=== PATIENT | male | born 1960 | race Caucasian/White ===

== ENCOUNTER 2017-05-19 07:52 | Observation (INO) | payer OTHER ==
[2017-05-19] MEDS ORDERED: FAMOTIDINE 20 MG TAB PO ONE (07:57)
[2017-05-19] MEDS ORDERED: ASPIRIN EC 325 MG TAB PO ONE (07:57)
[2017-05-19] MEDS ORDERED: diphenhydrAMINE 25 MG CAP PO ONE (07:57)
[2017-05-19] MEDS ORDERED: NS 1,000 ML IV ONE (07:57)
[2017-05-19] MEDS ORDERED: DIAZEPAM 5 MG TAB PO ONE (07:57)
--- NOTE | 2017-05-19 08:17 | CPEKG ---
Heart Rate: 71 RR Interval: 845 P-R Interval: 184 QRSD Interval: 88 QT Interval: 384 QTC Interval: 418 P [place]: 75 QRS [place]: -70 T Wave [place]: 83 EKG Severity - ABNORMAL ECG - EKG Impression: SINUS RHYTHM EKG Impression: LEFT ANTERIOR FASCICULAR BLOCK EKG Impression: CONSIDER ANTERIOR INFARCT Electronically Signed By: Wyatt Fuentes 19-May-2017 17:38:01
[2017-05-19 08:37] LABS: PLATELET COUNT 232 10^3/uL (150-400)
[2017-05-19 08:53] LABS: INR 0.94 (0.83-1.16); PROTIME(PATIENT) 12.5 SEC (12.0-15.0)
[2017-05-19] MEDS ORDERED: LIDOCAINE 1% 300 MG/30 ML SDV ONE (09:21)
[2017-05-19] MEDS ORDERED: MIDAZOLAM 2 MG/2 ML VIAL ONE ×5 (09:21→12:12)
[2017-05-19] MEDS ORDERED: fentaNYL 100 MCG/2 ML INJ ONE ×3 (09:21→12:17)
[2017-05-19] MEDS ORDERED: IOPAMIDOL (ISOVUE-370) 150 ML BTL IV ONE ×2 (09:22→11:49)
--- NOTE | 2017-05-19 10:09 | PDPROPOC ---
Sedation Plan of Care Sedation Plan of Care: vital signs stable, mental status noted, patient educated of risks, benefits, alternatives, patient can tolerate sedation ASA Classification: ASA 2 Planned drugs: fentanyl, midazolam Mallampati Score: Class 2 Mallampati Reference Image: Patient passed 3-3-2 rule?: Yes
--- NOTE | 2017-05-19 10:13 | PDGENHP ---
History & Physical Chief Complaint: CLIFTON, Fatigue. Poor exercise tolerance History of Present Illness: 56 year old with hx of CAD sp CABG x 4 in 2011 with new onset clifton and fatigue. He could not complete Manolo protocol secondary to CLIFTON. Nuc images demonstrate inferior ischemia. Pertinent Past, Social, Family History: PMH.CAD. CABG, HTN, DM. Hyperlipidemia Relevant Physical Exam: Awake alert appropriate. S1/S2 no m/r/g Cardiorespiratory Assessment: Normal cardiac exam.
[2017-05-19] MEDS ORDERED: HEPARIN 10,000 UNIT/10 ML MDV ONE ×2 (11:58→12:28)
[2017-05-19] MEDS ORDERED: NITROGLYCERIN/D5W 50 MG/250 ML BOTTLE IV ONE (12:23)
[2017-05-19] MEDS ORDERED: CLOPIDOGREL BISULFATE 75 MG TAB ONE (12:37)
[2017-05-19] MEDS ORDERED: LABETALOL HCL 5 MG/ML 20 ML MDV ONE (12:50)
[2017-05-19] MEDS ORDERED: TEMAZEPAM 15 MG CAP PO PRN (13:03)
[2017-05-19] MEDS ORDERED: ONDANSETRON 4 MG/2 ML VIAL IVP PRN (13:03)
[2017-05-19] MEDS ORDERED: NITROGLYCERIN 0.4 MG BTL SL PRN (13:03)
[2017-05-19] MEDS ORDERED: ATROPINE SULFATE 1 MG/10 ML SYR IVP PRN (13:03)
[2017-05-19] MEDS ORDERED: CLOPIDOGREL BISULFATE 75 MG TAB PO ONE ×2 (13:03→15:04)
--- NOTE | 2017-05-19 13:10 | PDCTREPORT ---
Cardiothoracic Procedure Rpt Cardiothoracic Procedure Report: Procedure: PCI and stenting of the dominant right coronary artery. Indications: Asked by Dr. Toro Granado to perform PCI and stenting of the dominant right coronary artery in this 56-year-old male had exertional shortness of breath is anginal equivalent status post failed nuclear treadmill with inferior ischemia. He is status post coronary artery bypass grafting. After reviewing diagnostic angiograms it was elected to proceed with PCI of the dominant right coronary. Patient was anticoagulated with heparin. Therapeutic ACT was confirmed. 6 Bulgarian sheath was exchanged for 7 Bulgarian sheath in the right femoral artery. Femoral arteriogram was performed. Using a 7 Bulgarian hockey-stick right guiding catheter the right coronary was selectively intubated. Using a 0.014 luge wire the RCA stenosis was crossed. Lesion was pre-dilated with a 2 mm balloon. For details of the balloon inflations in the entire procedure please see attached computer report. Was elected to proceed with stenting. A 3.0 x 38 mm synergy stent was placed on the wire. It would not cross. A 0.014 mailman wire was used as a louise which allowed the stent to cross. Mailman wire was withdrawn stent was deployed using a single inflation. Repeat angiograms revealed proximal dissection. Patient became hypertensive and agitated. Nitroglycerin drip was started. Attempts at placing a 2nd 3.0 x 32 mm synergy stent were made but failed. The Mailman wire was then again used as a louise allowing the stent to be placed properly. Was deployed using a single inflation after withdrawing the Mailman wire. Repeat angiograms revealed excellent clinical flow. Elected proceed with intravascular ultrasound. This revealed a proximal stent edge to be under deployed. A 4.0 x 12 mm synergy stent was placed on the wire in position proximally. It was deployed using a single inflation. Intravascular ultrasound showed excellent resolution of the dissection proximal as well as good stent apposition. The wire was withdrawn. Arteriotomy was closed using a Perclose system. 20 minutes of pressure was held post closure. Patient was administered 20 mg of IV labetalol for blood pressure control. A Femstop was placed prophylactically. Patient is taken to recovery for continued care. For details of the procedure please see attached computer report. Contrast 400 cc. Radiation 26.2 minutes of fluoroscopy, 5072 mGy. Sedation 12 mg Versed, 300 mcg of fentanyl. Conclusion: Successful PCI and stenting of the dominant right coronary complicated by limited dissection treated with stenting. Continue aggressive secondary prevention. Results discussed with Dr. Granado. Patient Problems: Problems Problem Status Onset Angina of effort Acute Abnormal exercise myocardial perfusion study Acute Status post coronary artery bypass grafting Acute Coronary artery disease Acute
--- NOTE | 2017-05-19 13:24 | CPIP ---
[f rep st] INVASIVE CARDIAC PROCEDURE DATE OF PROCEDURE: 05/19/2017 INDICATIONS: Known history of coronary artery disease, status post 4-vessel CABG in 2010, with new c omplaints of exertional intolerance, dyspnea on exertion and fatigue, coupled with abnormal nuclear s tress test in the setting that he was unable to complete exercise portion of treadmill secondary to p rofound dyspnea, shortness of breath, and exercise intolerance. Nuclear imaging demonstrated there w as evidence in the apical inferior, mid inferior, and basal inferolateral wall. These findings were new compared to previous study in 2015. NAME OF PROCEDURE: 1. Left heart catheterization. 2. Left coronary angiography. 3. Right coronary angiography. 4. Vein graft angiography and angiography of the left internal mammary artery to the left anterior d escending. 5. Left ventriculogram with assessment of hemodynamics. DESCRIPTION OF PROCEDURE: After informed consent was obtained, the patient was brought to the [facility] catheterization lab. Prior to the heart catheterization, there was discussion about potential dalia rgy to metals. He has no diagnosed allergy to a specific type of metal. He states he has never been tested but does note that he has been intolerant to wearing jewelry and belt noreen develop rash. We discussed this in detail, including options of CT angiography versus diagnostic left heart cathete rization or consideration of transfer to an institute performing PCI with bioabsorbable stents. Cheli torres, the decision was made to pursue diagnostic left heart catheterization in the setting of no co nclusive data on management other than to treat the underlying coronary artery disease. The patient was prepped and draped in a sterile fashion. With assistance of my colleague, Dr. José Miguel raymond, 6-Greenlandic femoral sheath was placed in the right common femoral artery without complications. JL 4 catheter was used to take images of the [place] left coronary anatomy in multiple projections. JL4 catheter was exchanged over a guidewire for a JR4 catheter. JR4 catheter was exchanged over a guidew [place] for a Marcellus right catheter, which was used to successfully cannulate the [place] right coronary artery. Marcellus right catheter was exchanged for a JR4 catheter, which was used to cannulate the s aphenous vein graft to the diagonal branch. Attempts to cannulate the vein graft to the ramus and ra dial branch to the circumflex demonstrated occluded vein graft to the diagonal and occluded radial gr aft to the circumflex. An internal mammary artery catheter was used to successfully cannulate the left internal mammary gabrielle ry. Images were taken in multiple projections. There was no evidence of coronary disease with the L IBIS. The anastomosis to the LAD was widely patent. Internal mammary artery catheter was removed over a guidewire. Angled pigtail catheter was used to c ross the aortic valve. Left ventriculogram was performed. LVEDP was assessed and gradient across th e aortic valve on pullback was also assessed. FINDINGS: 1. Left main normal caliber in size, demonstrates no evidence of coronary disease in the left main. The left main trifurcates into left anterior descending, right ramus branch, and circumflex artery. 2. The left anterior descending artery demonstrates 50% to 60% stenosis in the proximal LAD with mil d luminal irregularities to the remainder of the vessel. There is evidence of flow at the junction o f the AZUL to the LAD. 3. Left circumflex is a nondominant vessel. There is 30% to 40% proximal to mid narrowing within th e circumflex, with no evidence of flow-limiting coronary disease. 4. The right coronary artery is a dominant large caliber vessel that bifurcates into PDA and PLV bra nches. There is proximal to mid stenosis of 70% to 80%. Vein grafts: 1. Saphenous vein graft to the diagonal branch is widely patent. 2. Saphenous vein graft to the ramus branch is occluded at its origin. 3. Radial artery graft to the ramus branch is occluded. 4. Left internal mammary artery to LAD is widely patent with good anastomosis. HEMODYNAMICS: LVEDP 33 mmHg, LVEF 60% to 65%. Aortic valve gradient none. CONCLUSION: 1. Hemodynamically significant stenosis of the proximal dominant right coronary artery. In the sett ing of a dominant right coronary artery without vein grafts and evidence of apical mid and basal infe rior wall ischemia, we will plan for percutaneous coronary intervention to the right coronary artery. 2. Occluded radial graft to the circumflex and occluded saphenous vein graft to the ramus. 3. Patent saphenous vein graft to the diagonal. 4. Patent AZUL to the LAD. 5. Nonobstructive coronary disease within the LAD and circumflex. 6. Elevated LVEDP of 33 mmHg. 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 We will work to roseline zhang address blood pressure issues post procedure. PLAN: Plan for percutaneous coronary intervention to the proximal mid right coronary artery. I have reviewed these images with my interventional colleague, Dr. Casas. I have also discussed the erum n with the patient. /[id number]/MODL
--- NOTE | 2017-05-19 13:24 | CPIP ---
[f rep st] INVASIVE CARDIAC PROCEDURE DATE OF PROCEDURE: 05/19/2017 INDICATIONS: Known history of coronary artery disease, status post 4-vessel CABG in 2010, with new c omplaints of exertional intolerance, dyspnea on exertion and fatigue, coupled with abnormal nuclear s tress test in the setting that he was unable to complete exercise portion of treadmill secondary to p rofound dyspnea, shortness of breath, and exercise intolerance. Nuclear imaging demonstrated there w as evidence in the apical inferior, mid inferior, and basal inferolateral wall. These findings were new compared to previous study in 2015. NAME OF PROCEDURE: 1. Left heart catheterization. 2. Left coronary angiography. 3. Right coronary angiography. 4. Vein graft angiography and angiography of the left internal mammary artery to the left anterior d escending. 5. Left ventriculogram with assessment of hemodynamics. DESCRIPTION OF PROCEDURE: After informed consent was obtained, the patient was brought to the [facility] catheterization lab. Prior to the heart catheterization, there was discussion about potential dalia rgy to metals. He has no diagnosed allergy to a specific type of metal. He states he has never been tested but does note that he has been intolerant to wearing jewelry and belt noreen develop rash. We discussed this in detail, including options of CT angiography versus diagnostic left heart cathete rization or consideration of transfer to an institute performing PCI with bioabsorbable stents. Cheli torres, the decision was made to pursue diagnostic left heart catheterization in the setting of no co nclusive data on management other than to treat the underlying coronary artery disease. The patient was prepped and draped in a sterile fashion. With assistance of my colleague, Dr. José Miguel raymond, 6-Amharic femoral sheath was placed in the right common femoral artery without complications. JL 4 catheter was used to take images of the [place] left coronary anatomy in multiple projections. JL4 catheter was exchanged over a guidewire for a JR4 catheter. JR4 catheter was exchanged over a guidew [place] for a Marcellus right catheter, which was used to successfully cannulate the [place] right coronary artery. Marcellus right catheter was exchanged for a JR4 catheter, which was used to cannulate the s aphenous vein graft to the diagonal branch. Attempts to cannulate the vein graft to the ramus and ra dial branch to the circumflex demonstrated occluded vein graft to the diagonal and occluded radial gr aft to the circumflex. An internal mammary artery catheter was used to successfully cannulate the left internal mammary gabrielle ry. Images were taken in multiple projections. There was no evidence of coronary disease with the L IBIS. The anastomosis to the LAD was widely patent. Internal mammary artery catheter was removed over a guidewire. Angled pigtail catheter was used to c ross the aortic valve. Left ventriculogram was performed. LVEDP was assessed and gradient across th e aortic valve on pullback was also assessed. FINDINGS: 1. Left main normal caliber in size, demonstrates no evidence of coronary disease in the left main. The left main trifurcates into left anterior descending, right ramus branch, and circumflex artery. 2. The left anterior descending artery demonstrates 50% to 60% stenosis in the proximal LAD with mil d luminal irregularities to the remainder of the vessel. There is evidence of flow at the junction o f the AZUL to the LAD. 3. Left circumflex is a nondominant vessel. There is 30% to 40% proximal to mid narrowing within th e circumflex, with no evidence of flow-limiting coronary disease. 4. The right coronary artery is a dominant large caliber vessel that bifurcates into PDA and PLV bra nches. There is proximal to mid stenosis of 70% to 80%. Vein grafts: 1. Saphenous vein graft to the diagonal branch is widely patent. 2. Saphenous vein graft to the ramus branch is occluded at its origin. 3. Radial artery graft to the ramus branch is occluded. 4. Left internal mammary artery to LAD is widely patent with good anastomosis. HEMODYNAMICS: LVEDP 33 mmHg, LVEF 60% to 65%. Aortic valve gradient none. CONCLUSION: 1. Hemodynamically significant stenosis of the proximal dominant right coronary artery. In the sett ing of a dominant right coronary artery without vein grafts and evidence of apical mid and basal infe rior wall ischemia, we will plan for percutaneous coronary intervention to the right coronary artery. 2. Occluded radial graft to the circumflex and occluded saphenous vein graft to the ramus. 3. Patent saphenous vein graft to the diagonal. 4. Patent AZUL to the LAD. 5. Nonobstructive coronary disease within the LAD and circumflex. 6. Elevated LVEDP of 33 mmHg. 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 We will work to roseline zhang address blood pressure issues post procedure. PLAN: Plan for percutaneous coronary intervention to the proximal mid right coronary artery. I have reviewed these images with my interventional colleague, Dr. Casas. I have also discussed the erum n with the patient. /[id number]/MODL
--- NOTE | 2017-05-19 13:24 | CPIP ---
[f rep st] INVASIVE CARDIAC PROCEDURE DATE OF PROCEDURE: 05/19/2017 INDICATIONS: Known history of coronary artery disease, status post 4-vessel CABG in 2010, with new c omplaints of exertional intolerance, dyspnea on exertion and fatigue, coupled with abnormal nuclear s tress test in the setting that he was unable to complete exercise portion of treadmill secondary to p rofound dyspnea, shortness of breath, and exercise intolerance. Nuclear imaging demonstrated there w as evidence in the apical inferior, mid inferior, and basal inferolateral wall. These findings were new compared to previous study in 2015. NAME OF PROCEDURE: 1. Left heart catheterization. 2. Left coronary angiography. 3. Right coronary angiography. 4. Vein graft angiography and angiography of the left internal mammary artery to the left anterior d escending. 5. Left ventriculogram with assessment of hemodynamics. DESCRIPTION OF PROCEDURE: After informed consent was obtained, the patient was brought to the [facility] catheterization lab. Prior to the heart catheterization, there was discussion about potential dalia rgy to metals. He has no diagnosed allergy to a specific type of metal. He states he has never been tested but does note that he has been intolerant to wearing jewelry and belt noreen develop rash. We discussed this in detail, including options of CT angiography versus diagnostic left heart cathete rization or consideration of transfer to an institute performing PCI with bioabsorbable stents. Cheli torres, the decision was made to pursue diagnostic left heart catheterization in the setting of no co nclusive data on management other than to treat the underlying coronary artery disease. The patient was prepped and draped in a sterile fashion. With assistance of my colleague, Dr. José Miguel raymond, 6-Nepali femoral sheath was placed in the right common femoral artery without complications. JL 4 catheter was used to take images of the [place] left coronary anatomy in multiple projections. JL4 catheter was exchanged over a guidewire for a JR4 catheter. JR4 catheter was exchanged over a guidew [place] for a Marcellus right catheter, which was used to successfully cannulate the [place] right coronary artery. Marcellus right catheter was exchanged for a JR4 catheter, which was used to cannulate the s aphenous vein graft to the diagonal branch. Attempts to cannulate the vein graft to the ramus and ra dial branch to the circumflex demonstrated occluded vein graft to the diagonal and occluded radial gr aft to the circumflex. An internal mammary artery catheter was used to successfully cannulate the left internal mammary gabrielle ry. Images were taken in multiple projections. There was no evidence of coronary disease with the L IBIS. The anastomosis to the LAD was widely patent. Internal mammary artery catheter was removed over a guidewire. Angled pigtail catheter was used to c ross the aortic valve. Left ventriculogram was performed. LVEDP was assessed and gradient across th e aortic valve on pullback was also assessed. FINDINGS: 1. Left main normal caliber in size, demonstrates no evidence of coronary disease in the left main. The left main trifurcates into left anterior descending, right ramus branch, and circumflex artery. 2. The left anterior descending artery demonstrates 50% to 60% stenosis in the proximal LAD with mil d luminal irregularities to the remainder of the vessel. There is evidence of flow at the junction o f the AZUL to the LAD. 3. Left circumflex is a nondominant vessel. There is 30% to 40% proximal to mid narrowing within th e circumflex, with no evidence of flow-limiting coronary disease. 4. The right coronary artery is a dominant large caliber vessel that bifurcates into PDA and PLV bra nches. There is proximal to mid stenosis of 70% to 80%. Vein grafts: 1. Saphenous vein graft to the diagonal branch is widely patent. 2. Saphenous vein graft to the ramus branch is occluded at its origin. 3. Radial artery graft to the ramus branch is occluded. 4. Left internal mammary artery to LAD is widely patent with good anastomosis. HEMODYNAMICS: LVEDP 33 mmHg, LVEF 60% to 65%. Aortic valve gradient none. CONCLUSION: 1. Hemodynamically significant stenosis of the proximal dominant right coronary artery. In the sett ing of a dominant right coronary artery without vein grafts and evidence of apical mid and basal infe rior wall ischemia, we will plan for percutaneous coronary intervention to the right coronary artery. 2. Occluded radial graft to the circumflex and occluded saphenous vein graft to the ramus. 3. Patent saphenous vein graft to the diagonal. 4. Patent AZUL to the LAD. 5. Nonobstructive coronary disease within the LAD and circumflex. 6. Elevated LVEDP of 33 mmHg. 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 We will work to roseline zhang address blood pressure issues post procedure. PLAN: Plan for percutaneous coronary intervention to the proximal mid right coronary artery. I have reviewed these images with my interventional colleague, Dr. Casas. I have also discussed the erum n with the patient. /[id number]/MODL
[2017-05-19] MEDS ORDERED: ACETAMINOPHEN 325 MG TAB PO PRN (13:29)
[2017-05-19] MEDS ORDERED: NS 1,000 ML IV SCH ×2 (13:30→15:00)
[2017-05-19 14:04] LABS: PLATELET COUNT 220 10^3/uL (150-400)
--- NOTE | 2017-05-19 14:10 | CPEKG ---
Heart Rate: 67 RR Interval: 896 P-R Interval: 172 QRSD Interval: 88 QT Interval: 416 QTC Interval: 439 P [place]: 57 QRS [place]: -49 T Wave [place]: 104 EKG Severity - ABNORMAL ECG - EKG Impression: SINUS RHYTHM EKG Impression: ATRIAL PREMATURE COMPLEX EKG Impression: LEFT ANTERIOR FASCICULAR BLOCK EKG Impression: CONSIDER ANTEROSEPTAL INFARCT EKG Impression: NONSPECIFIC T ABNORMALITIES, LATERAL LEADS Electronically Signed By: Wyatt Fuentes 19-May-2017 17:38:15
[2017-05-19] MEDS ORDERED: OXYCODONE/APAP 5/325 TAB PO ONE (14:30)
[2017-05-19] MEDS ORDERED: NITROGLYCERIN/DEXTROSE 250 ML IV SCH (15:00)
[2017-05-19] MEDS ORDERED: LORazepam 2 MG/ML INJ ONE (15:07)
[2017-05-19] MEDS: LORazepam 2 MG/ML INJ IVP PRN ×2 (15:08→17:28)
[2017-05-19] MEDS ORDERED: INSULIN GLARGINE 100 UNITS/ML SYRINGE SC SCH (16:00)
[2017-05-19] MEDS ORDERED: INSULIN LISPRO 50 UNIT SQ SCH (21:00)
[2017-05-19] MEDS ORDERED: INSULIN LISPRO 100 UNIT/ML SC SCH (21:00)
[2017-05-19] MEDS: METOPROLOL TARTRATE 50 MG TAB PO SCH (21:14)
[2017-05-19] MEDS: INSULIN GLARGINE 100 UNITS/ML SYRINGE SC SCH (22:18)
[2017-05-20 05:34] LABS: PLATELET COUNT 211 10^3/uL (150-400)
--- NOTE | 2017-05-20 06:32 | PDCARPN ---
Cardiology Progress Note Chief Complaint: sob, salas, exertional intolerance Assessment/Plan: Assessment: 1. CAD sp PCI x 4 to RCA yesterday 2. Hx of 4 V CABG in 2011. patent AZUL to LAD and SVG to diag. Occluded Radial to LCX and SVG to Ramus 3. Essential HTN 4. Hyperlipidemia 5. DM 6. Obesity 7. ALLIE (scheduled to see [facility] next week for initial consultation) Plan: -continue plavix 75 mg daily x one year -aspirin 81 mg daily -increase Linsinopril/HCTZ 10/12.5 mg to 2 tabs once daily (has been on one tab daily) -add Lasix 20 mg daily secondary to elevated LVEDP -Cardiac Rehab -Follow up next week in our office -post cath groin site care reviewed in detail -No other changes to medications 05/20/17 06:28 Subjective: Mr. Juan presented yesterday for elective LHC in the setting of abnormal nuclear stress test with inferior and inferior lateral ischemia coupled with symptoms of sob, salas and exertional intolerance. He was found to have significant cad in the RCA and underwent successful PCI to RCA. There was RCA dissection with stent deployment, required addtional PCI, with JOSE ARMANDO III restored. He had some mild post op bleeding from groin site. No events over night. Groin site with ecchymosis without hematoma. Pt is without complaint this morning. Reviewed/Discussed With: multidisciplinary team Time Spent With Patient: 20 minutes Objective: Vital Signs (8 Hrs) Temp Pulse Resp BP Pulse Ox 05/20/17 04:00 36.7 C 56 L 18 137/80 H 97 05/19/17 23:30 36.8 C 74 18 101/56 L 91 L Intake/Output (24 Hrs) 05/19/17 05/20/17 05/21/17 05:59 05:59 05:59 Intake Total 3062 Output Total 1075 Balance 1986 Intake: Oral (ml) 400 IV Intake (ml) 2000 IV Infused (ml) 662 Nitroglycerin/Dextrose 12 250 ml @ Titrate IV CONT LOLA Rx#:[id number] Ns 1,000 ml @ 50 mls/hr 650 IV CONT LOLA Rx#: [id number] Output: Urine (ml) 1075 Urinal 1075 Other: Weight 160.6 kg Number of Voids Urinal 1 Number of Stools Urinal 1 Result Diagrams: 05/20/17 04:49 05/20/17 04:49 - Physical Exam Eyes: PERRL Ears, Nose, Mouth, Throat: moist mucous membranes Cardiovascular: regular rate and rhythm, no murmurs, no rubs, no gallops Peripheral Pulses: 2+: dorsalis-pedis (R), dorsalis-pedis (L) Respiratory: clear to auscultate bilat Musculoskeletal: no muscular tenderness Neurologic: AAOx3, CN II-XII grossly intact Psychiatric: cooperative, interactive ICD10 Worksheet Patient Problems: Problems Problem Status Onset Angina of effort Acute Abnormal exercise myocardial perfusion study Acute Status post coronary artery bypass grafting Acute Coronary artery disease Acute
--- NOTE | 2017-05-20 06:32 | PDCARPN ---
Cardiology Progress Note Chief Complaint: sob, salas, exertional intolerance Assessment/Plan: Assessment: 1. CAD sp PCI x 4 to RCA yesterday 2. Hx of 4 V CABG in 2011. patent AZUL to LAD and SVG to diag. Occluded Radial to LCX and SVG to Ramus 3. Essential HTN 4. Hyperlipidemia 5. DM 6. Obesity 7. ALLIE (scheduled to see [facility] next week for initial consultation) Plan: -continue plavix 75 mg daily x one year -aspirin 81 mg daily -increase Linsinopril/HCTZ 10/12.5 mg to 2 tabs once daily (has been on one tab daily) -add Lasix 20 mg daily secondary to elevated LVEDP -Cardiac Rehab -Follow up next week in our office -post cath groin site care reviewed in detail -No other changes to medications 05/20/17 06:28 Subjective: Mr. Juan presented yesterday for elective LHC in the setting of abnormal nuclear stress test with inferior and inferior lateral ischemia coupled with symptoms of sob, salas and exertional intolerance. He was found to have significant cad in the RCA and underwent successful PCI to RCA. There was RCA dissection with stent deployment, required addtional PCI, with JOSE ARMANDO III restored. He had some mild post op bleeding from groin site. No events over night. Groin site with ecchymosis without hematoma. Pt is without complaint this morning. Reviewed/Discussed With: multidisciplinary team Time Spent With Patient: 20 minutes Objective: Vital Signs (8 Hrs) Temp Pulse Resp BP Pulse Ox 05/20/17 04:00 36.7 C 56 L 18 137/80 H 97 05/19/17 23:30 36.8 C 74 18 101/56 L 91 L Intake/Output (24 Hrs) 05/19/17 05/20/17 05/21/17 05:59 05:59 05:59 Intake Total 3062 Output Total 1075 Balance 1986 Intake: Oral (ml) 400 IV Intake (ml) 2000 IV Infused (ml) 662 Nitroglycerin/Dextrose 12 250 ml @ Titrate IV CONT LOLA Rx#:[id number] Ns 1,000 ml @ 50 mls/hr 650 IV CONT LOLA Rx#: [id number] Output: Urine (ml) 1075 Urinal 1075 Other: Weight 160.6 kg Number of Voids Urinal 1 Number of Stools Urinal 1 Result Diagrams: 05/20/17 04:49 05/20/17 04:49 - Physical Exam Eyes: PERRL Ears, Nose, Mouth, Throat: moist mucous membranes Cardiovascular: regular rate and rhythm, no murmurs, no rubs, no gallops Peripheral Pulses: 2+: dorsalis-pedis (R), dorsalis-pedis (L) Respiratory: clear to auscultate bilat Musculoskeletal: no muscular tenderness Neurologic: AAOx3, CN II-XII grossly intact Psychiatric: cooperative, interactive ICD10 Worksheet Patient Problems: Problems Problem Status Onset Angina of effort Acute Abnormal exercise myocardial perfusion study Acute Status post coronary artery bypass grafting Acute Coronary artery disease Acute
--- NOTE | 2017-05-20 06:32 | PDCARPN ---
Cardiology Progress Note Chief Complaint: sob, salas, exertional intolerance Assessment/Plan: Assessment: 1. CAD sp PCI x 4 to RCA yesterday 2. Hx of 4 V CABG in 2011. patent AZUL to LAD and SVG to diag. Occluded Radial to LCX and SVG to Ramus 3. Essential HTN 4. Hyperlipidemia 5. DM 6. Obesity 7. ALLIE (scheduled to see [facility] next week for initial consultation) Plan: -continue plavix 75 mg daily x one year -aspirin 81 mg daily -increase Linsinopril/HCTZ 10/12.5 mg to 2 tabs once daily (has been on one tab daily) -add Lasix 20 mg daily secondary to elevated LVEDP -Cardiac Rehab -Follow up next week in our office -post cath groin site care reviewed in detail -No other changes to medications 05/20/17 06:28 Subjective: Mr. Juan presented yesterday for elective LHC in the setting of abnormal nuclear stress test with inferior and inferior lateral ischemia coupled with symptoms of sob, salas and exertional intolerance. He was found to have significant cad in the RCA and underwent successful PCI to RCA. There was RCA dissection with stent deployment, required addtional PCI, with JOSE ARMANDO III restored. He had some mild post op bleeding from groin site. No events over night. Groin site with ecchymosis without hematoma. Pt is without complaint this morning. Reviewed/Discussed With: multidisciplinary team Time Spent With Patient: 20 minutes Objective: Vital Signs (8 Hrs) Temp Pulse Resp BP Pulse Ox 05/20/17 04:00 36.7 C 56 L 18 137/80 H 97 05/19/17 23:30 36.8 C 74 18 101/56 L 91 L Intake/Output (24 Hrs) 05/19/17 05/20/17 05/21/17 05:59 05:59 05:59 Intake Total 3062 Output Total 1075 Balance 1986 Intake: Oral (ml) 400 IV Intake (ml) 2000 IV Infused (ml) 662 Nitroglycerin/Dextrose 12 250 ml @ Titrate IV CONT LOLA Rx#:[id number] Ns 1,000 ml @ 50 mls/hr 650 IV CONT LOLA Rx#: [id number] Output: Urine (ml) 1075 Urinal 1075 Other: Weight 160.6 kg Number of Voids Urinal 1 Number of Stools Urinal 1 Result Diagrams: 05/20/17 04:49 05/20/17 04:49 - Physical Exam Eyes: PERRL Ears, Nose, Mouth, Throat: moist mucous membranes Cardiovascular: regular rate and rhythm, no murmurs, no rubs, no gallops Peripheral Pulses: 2+: dorsalis-pedis (R), dorsalis-pedis (L) Respiratory: clear to auscultate bilat Musculoskeletal: no muscular tenderness Neurologic: AAOx3, CN II-XII grossly intact Psychiatric: cooperative, interactive ICD10 Worksheet Patient Problems: Problems Problem Status Onset Angina of effort Acute Abnormal exercise myocardial perfusion study Acute Status post coronary artery bypass grafting Acute Coronary artery disease Acute
--- NOTE | 2017-05-20 07:08 | GDS ---
[f rep st] DISCHARGE SUMMARY INDICATION FOR ADMISSION: The patient was elect admission for left heart catheterization in the setting of known history of coronary artery disease status post 4 vessel CABG with new complaints of shortness of breath, dyspnea on exertion and exertional intolerance and fatigue coupled with abnormal nuclear stress test demonstrating inferior and inferolateral wall ischemia. Diagnostic left heart catheterization demonstrated significant [place] right coronary artery disease in the in the proximal mid segment of the vessel. This vessel had not been revascularized during his bypass surgery in 2010. He underwent successful percutaneous coronary intervention to the right coronary artery. The procedure was complicated by limited dissection that was treated successfully with stenting. He had no postoperative complications. Of note, a diagnostic left heart catheterization demonstrated patent saphenous vein graft to the diagonal branch and patent AZUL to LAD. Radial artery graft to the circumflex was occluded as well as saphenous vein graft to the ramus branch. Postoperative course was noted for some mild oozing from his groin site. Hemostasis was achieved yesterday afternoon with FemoStop. He had no further bleeding episodes through the course of the night. His course was also complicated by some hypertension post procedure. He required some nitroglycerin which was weaned off. This morning he is without complaint. No new issues. His lab work demonstrates stable hemoglobin and creatinine of 0.8 this morning. He will be stable for discharge home this morning. MEDICATION CHANGES AT TIME OF DISCHARGE: 1. The patient will be started on Plavix 75 mg daily. 2. Patient will increase his lisinopril/hydrochlorothiazide from 10/12.5 once daily to 2 tablets daily. 3. Patient will also add Lasix 20 mg daily in the setting of elevated LVEDP of 40 mmHg. 4. No other changes to his medications. PLAN AT TIME OF DISCHARGE: 1. The patient will be discharged home. 2. Patient has been given postoperative right groin instructions. 3. Medication changes as outlined above. 4. The patient will be started cardiac rehab. 5. Patient is scheduled to follow up in my office in 1 week. 30 minutes spent coordinating care /[id number]/MODL MTDD
[2017-05-20 07:27] VITALS: BP 167/83; PULSE 75; RESP 15; TEMP 97.9; O2SAT 91
[2017-05-20] MEDS ORDERED: INSULIN LISPRO 100 UNIT/ML SC SCH (08:00)
[2017-05-20] MEDS: INSULIN GLARGINE 100 UNITS/ML SYRINGE SC SCH (08:27)
[2017-05-20] MEDS: METOPROLOL TARTRATE 50 MG TAB PO SCH (08:31)
--- NOTE | 2017-05-20 08:59 | CPEKG ---
Heart Rate: 83 RR Interval: 723 P-R Interval: 168 QRSD Interval: 84 QT Interval: 384 QTC Interval: 452 P [place]: 73 QRS [place]: -84 T Wave [place]: 95 EKG Severity - ABNORMAL ECG - EKG Impression: SINUS RHYTHM EKG Impression: LEFT ANTERIOR FASCICULAR BLOCK EKG Impression: NONSPECIFIC T ABNORMALITIES, LATERAL LEADS EKG Impression: CONSIDER ANTEROSEPTAL INFARCTION Electronically Signed By: Wyatt Fuentes 20-May-2017 11:00:27
[2017-05-20] MEDS ORDERED: NON-FORMULARY NEW DRUG (Atorvastatin Calcium [Lipitor 80 Mg] 80 MG) PO SCH (09:00)
[2017-05-20] MEDS ORDERED: FUROSEMIDE 20 MG TAB PO SCH (09:00)
[2017-05-20] MEDS ORDERED: NON-FORMULARY NEW DRUG (Fenofibrate [Fenofibrate] 160 MG) PO SCH (09:00)
[2017-05-20] MEDS ORDERED: CLOPIDOGREL BISULFATE 75 MG TAB PO SCH ×2 (09:00)
[2017-05-20] MEDS ORDERED: ASPIRIN EC 325 MG TAB PO SCH (09:00)
[2017-05-20] MEDS ORDERED: LISINOPRIL/HCTZ 10/12.5 MG 1 EA TAB PO SCH ×3 (09:00)
[2017-05-20] MEDS ORDERED: Fenofibrate [Fenofibrate] 160 MG PO SCH (09:00)
[2017-05-20] MEDS ORDERED: NON-FORMULARY NEW DRUG (Cholecalciferol (Vitamin D3) [Vitamin D3] 5,000 UNIT) PO SCH (09:00)
[2017-05-20] MEDS ORDERED: OMEGA-3 FATTY ACIDS 1,000 MG CAP PO SCH (09:00)
[2017-05-20] MEDS ORDERED: ATORVASTATIN CALCIUM 40 MG TAB PO SCH (09:00)
[2017-05-20] MEDS ORDERED: CHOLECALCIFEROL VIT D3 1,000 UNITS TAB PO SCH (09:00)
[2017-05-20] MEDS ORDERED: MULTIVITAMINS 1 EACH TAB PO SCH (09:00)
--- NOTE | 2017-05-20 14:50 | ASDISCHSUM ---
Discharge Information Plan Status:Home with No Needs Medically Cleared to Leave:05/20/2017 Discharge Date:05/20/2017 10:30 AM CM D/C Disposition:Home, Routine, Self-Care ADT D/C Disposition:Home, Routine, Self-Care Projected Discharge Date:05/20/2017 10:30 AM Transportation at D/C:None or Unknown Discharge Delay Reason: Follow-Up Date:05/20/2017 10:30 AM Discharge Slot: Final Diagnosis: Placement Information Patient Contact Information Contact Name:MELIA Relationship: Address:[address] [place], [place] [address] City:[facility] Phone: State/Zip Code:[place] [address] Email: Financial Information Financial Class:HMO and PPO Plans Primary Plan Desc:[facility] Primary Plan Number:[id number] Secondary Plan Desc: Secondary Plan Number: Assessment Information Intervention Information
--- NOTE | 2017-05-20 14:50 | ASDISCHSUM ---
Discharge Information Plan Status:Home with No Needs Medically Cleared to Leave:05/20/2017 Discharge Date:05/20/2017 10:30 AM CM D/C Disposition:Home, Routine, Self-Care ADT D/C Disposition:Home, Routine, Self-Care Projected Discharge Date:05/20/2017 10:30 AM Transportation at D/C:None or Unknown Discharge Delay Reason: Follow-Up Date:05/20/2017 10:30 AM Discharge Slot: Final Diagnosis: Placement Information Patient Contact Information Contact Name:MELIA Relationship: Address:[address] [place], [place] [address]:[facility] Phone: State/Zip Code:[place] [address] Email: Financial Information Financial Class:HMO and PPO Plans Primary Plan Desc:[facility] Primary Plan Number:[id number] Secondary Plan Desc: Secondary Plan Number: Assessment Information Intervention Information
--- NOTE | 2017-05-20 14:50 | ASDISCHSUM ---
Discharge Information Plan Status:Home with No Needs Medically Cleared to Leave:05/20/2017 Discharge Date:05/20/2017 10:30 AM CM D/C Disposition:Home, Routine, Self-Care ADT D/C Disposition:Home, Routine, Self-Care Projected Discharge Date:05/20/2017 10:30 AM Transportation at D/C:None or Unknown Discharge Delay Reason: Follow-Up Date:05/20/2017 10:30 AM Discharge Slot: Final Diagnosis: Placement Information Patient Contact Information Contact Name:MELIA Relationship: Address:[address] [place], [place] [address] City:[facility] Phone: State/Zip Code:[place] [address] Email: Financial Information Financial Class:HMO and PPO Plans Primary Plan Desc:[facility] Primary Plan Number:[id number] Secondary Plan Desc: Secondary Plan Number: Assessment Information Intervention Information
== END 2017-05-20 10:30 | disposition home or self-care (01) ==
LOC: FCATH 07:52 → F2W 12:29 → UNDOADMOB 12:43 → F2W 17:03
PROVIDERS: ADMIT Internal Medicine Cardiovascular Disease; ATTEND Internal Medicine Cardiovascular Disease
PROC: B240ZZ3 Ultrasonography of Single Coronary Artery, Intravascular (ICD-10-PCS; principal; 2017-05-19)
PROC: 027034Z Dilation of Coronary Artery, One Artery with Drug-eluting Intraluminal Device, Percutaneous Approach (ICD-10-PCS; principal; 2017-05-19)
PROC: 4A023N8 Measurement of Cardiac Sampling and Pressure, Bilateral, Percutaneous Approach (ICD-10-PCS; 2017-05-19)
PROC: B2181ZZ Fluoroscopy of Left Internal Mammary Bypass Graft using Low Osmolar Contrast (ICD-10-PCS; 2017-05-19)
PROC: B2111ZZ Fluoroscopy of Multiple Coronary Arteries using Low Osmolar Contrast (ICD-10-PCS; 2017-05-19)
PROC: B2151ZZ Fluoroscopy of Left Heart using Low Osmolar Contrast (ICD-10-PCS; 2017-05-19)
DX: I25.119 Atherosclerotic heart disease of native coronary artery with unspecified angina pectoris (principal); Z95.1 Presence of aortocoronary bypass graft; I25.2 Old myocardial infarction; E78.5 Hyperlipidemia, unspecified; I10 Essential (primary) hypertension; G47.33 Obstructive sleep apnea (adult) (pediatric); E11.9 Type 2 diabetes mellitus without complications; Z79.4 Long term (current) use of insulin
CPT/HCPCS: 92928; 92978; 93005; 93459; C1725; C1753; C1769; C1887; G0378; C1760; C1874; C9600; J1644; J1815; J2060; J2250; J3010; J3490; Q9967

== ENCOUNTER 2018-12-29 07:59 | Observation (INO) | payer OTHER | END 2018-12-30 11:14 | disposition home or self-care (01) | LOC: FCATH 07:59 → F2W 13:23 ==